=== PATIENT | male | born 1935 ===

== ENCOUNTER → 2016-09-10 | Day surgery (SDC) | payer OTHER ==
[~2016-09-10] VITALS: Ht 175.3 cm; Wt 77.1 kg
[2016-09-10] VITALS (11 sets, daily range): BP systolic 106–120; BP diastolic 63–78
[~2016-09-10] MED LIST: ASPIR-LOW81 MG ORAL; ATORVASTATIN CA40 MG ORAL; BSS 15ml BTL ONE; BSS 500ml btl ONE; D3 PO; Dexamethasone 4mg/ml vial ONE; EPINEPHrine 1mg/1ml Amp ONE; Gatifloxacin Opth Solution 0.5% ONE; HYDROCHLOROTHIA25 MG ORAL; LR 1000ml ONE; Lidocaine 1% MPF 10mg/ml 5ml ONE; METFORMIN HCL500 M4 ORAL; Midazolam 2mg/2ml Inj ONE; NS Irrig 1000ml ONE; Povidone-Iodine 5% opth solution ONE; Sodium Hyaluronate 14 mg/ml 0.85ml ONE; Sterile Water Irrig 1000ml IRRIG ONE; [UNRECOGNIZED DRUG - OTHER] PO; fentaNYL 100 mcg/2 mL IV ONE
[2016-09-10] MEDS: Phenylephrine 2.5% Op Soln LEFT EYE SCH ×3 (07:29→07:53)
[2016-09-10] MEDS: Tobradex Opth Susp 2.5ml LEFT EYE SCH ×3 (07:30→07:55)
[2016-09-10] MEDS: Tropicamide 1% Opth Soln LEFT EYE SCH ×3 (07:30→07:55)
[2016-09-10] MEDS: Diclofenac Sod 0.1% Op Soln LEFT EYE SCH ×3 (07:30→07:55)
[2016-09-10] MEDS: Gatifloxacin Opth Solution 0.5% LEFT EYE SCH ×3 (07:31→07:55)
[2016-09-10] MEDS: Akten 3.5% 1ml Btl LEFT EYE SCH ×3 (07:31→07:56)
--- NOTE | 2016-09-10 07:37 | Pre-Procedure Note/Attestation ---
Pre-Procedure Note/Attestation Complete Prior to Procedure Planned Procedure: left Procedure Narrative: cataract extraction with implant left eye Indications for Procedure Pre-Operative Diagnosis: cataract left eye Attestation I attest that I discussed the nature of the procedure; its benefits; risks and complications; and alternatives (and the risks and benefits of such alternatives ), prior to the procedure, with the patient (or the patient's legal business services sales representative). I attest that, if there was a reasonable possibility of needing a blood transfusion, the patient (or the patient's legal business services sales representative) was given the [facility] standardized written summary, pursuant to the [place] Blood Safety Act ([place] Health and Safety Code # 1645, as amended). I attest that I re-evaluated the patient just prior to the surgery and that there has been no change in the patient's H&P, except as documented below: HEENA HARRIS Sep 10, 2016 07:37
--- NOTE | 2016-09-10 09:36 | Brief Operative Note ---
Immediate Post Operative Note Operative Note Pre-op Diagnosis: cataract left eye Procedure: phacoemulsification of cataract with implant left eye Post-op Diagnosis: same as pre-op Surgeon: heena toth Wine Manager: none Anesthesiologist: hemant mishra Anesthesia: MAC Specimen: none Complications: none Condition: stable Estimated Blood Loss: none Drains: none Implant(s) used?: Yes HEENA TOTH Sep 10, 2016 09:36
--- NOTE | 2016-09-10 09:52 | Immediate Post-Op Evaluation ---
Immediate Post-Op Evalulation Immediate Post-Op Evalulation Procedure: cataract extraction left eye Date of Evaluation: Sep 10, 2016 Time of Evaluation: 09:28 IV Fluids: 200 Blood Pressure Systolic: 113 Blood Pressure Diastolic: 64 Pulse Rate: 67 Respiratory Rate: 14 O2 Sat by Pulse Oximetry: 99 Temperature (Fahrenheit): 97.0 Nausea: No Vomiting: No Complications none Patient Status: awake, reacts, patent Hydration Status: adequate Drug: none JACERIRONIIONGEOVANNI CRNA Sep 10, 2016 09:52
--- NOTE | 2016-09-10 09:55 | Anethesia Preoperative Eval ---
Anesthesia Pre-op PMH/ROS General Date of Evaluation: Sep 10, 2016 Time of Evaluation: 08:55 Anesthesiologist: danica ASA Score: ASA 2 Mallampati Score Class I : Soft palate, uvula, fauces, pillars visible Class II: Soft palate, uvula, fauces visible Class III: Soft palate, base of uvula visible Class IV: Only hard plate visible Mallampati Classification: Class II Surgeon: navneet Diagnosis: cataract Surgical Procedure: cataract extraction left eye Anesthesia History: none Family History: no anesthesia problems Allergies: Coded Allergies: No Known Allergies (Unverified , 09/09/16) Medications: see eMAR Past Medical History Cardiovascular: Reports: HTN Pulmonary: Denies: COPD, ELIZA, asthma, other Gastrointestinal/Genitourinary: Denies: CRI, ESRD, GERD, other Neurologic/Psychiatric: Denies: CVA, TIA, dementia, depression/anxiety, other Endocrine: Reports: DM HEENT: Reports: cataract (L) Hematology/Immune: Denies: DVT, anemia, bleeding disorder, other Musculoskeletal/Integumentary: Denies: DDD, DJD, OA, RA, edema, other PSxH Narrative: cataract right eye Anesthesia Pre-op Phys. Exam Physician Exam Last Vital Signs Date Time Temp Pulse Resp B/P Pulse Ox O2 Delivery O2 Flow Rate FiO2 09/10/16 09:46 63 19 112/70 99 Room Air 09/10/16 09:26 97.0 Constitutional: NAD Neurologic: CN 2-12 intact Cardiovascular: RRR Respiratory: CTA Gastrointestinal: S/NT/ND Airway Exam Mallampati Classification 2 Mallampati Score: Class II MO: full ROM: full Dentures: no lower, no upper Anesthesia Pre-op A/P Studies Pre-op Studies: EKG - sr Risk Assessment & Plan Plan: mac Status Change Before Surgery: No Pre-Antibiotics Drug: none GEOVANNI NARAYAN CRNA Sep 10, 2016 09:55
--- NOTE | 2016-09-10 11:02 | 48 Hour Post Anesthesia Eval ---
Post Anesthesia Evaluation Procedure: cataract extraction left eye Date of Evaluation: Sep 10, 2016 Time of Evaluation: 11:02 Blood Pressure Systolic: 113 0: 64 Pulse Rate: 63 O2 Sat by Pulse Oximetry: 99 Airway: patent Nausea: No Vomiting: No Hydration Status: adequate Mental Status/LOC: patient returned to baseline Post-Anesthesia Complications: none Follow-up care needed: N/A GEOVANNI NARAYAN CRNA Sep 10, 2016 11:02
--- NOTE | 2016-09-10 12:47 | Operative Note - Dictated ---
DATE OF OPERATION: 09/10/2015 PREOPERATIVE DIAGNOSIS: Cataract, left eye. POSTOPERATIVE DIAGNOSIS: Cataract, left eye. PROCEDURE: Phacoemulsification cataract left eye with placement of posterior intraocular lens. SURGEON: Guillermo Sarah M.D. LEAD RAMP SERVICE MAN: None. ANESTHESIA: MAC/topical. ANESTHESIOLOGIST: Mariluz Mccall C.R.N.A. INDICATION FOR PROCEDURE: Poor vision, left eye. DESCRIPTION OF FINDINGS: Nuclear sclerotic and cortical cataract, left eye. DESCRIPTION OF PROCEDURE: The patient received a topical anesthetic block consisting of 3.5% Akten eye drops. The eye was then prepped and draped in usual manner. A lid speculum was placed. An operating Zeiss microscope was positioned. A temporal corneal groove was made with the alf blade. A SuperSharp blade made a stab incision at the 6 o'clock position. A 0.1 mL of 1% nonpreserved intracameral lidocaine was injected. Healon was instilled into the anterior chamber and a 2.5/2.8 mm trapezoidal alf blade was used to complete the temporal corneal wound. A cystotome was used to create an anterior capsular flap. Utrata forceps were used to complete the capsulorrhexis. BSS on a cannula was used to hydrodissect the nucleus. The lens nucleus phacoemulsified in a phaco-fracture technique. Remaining cortical material was removed with the I/A and the posterior capsule polished with the I/A on Cap vac. Healon was reinstilled into the capsular bag, and anterior chamber, and an Seth foldable one-piece posterior chamber intraocular lens, model ZCB00, power 19.5 diopter, serial #[id number] was placed into the injector. The lens was put into the capsular bag. The I/A tip was used to remove the Healon and position the lens. The wound edge was hydrated with BSS and a blunt-tipped cannula. The wound was checked and found to be watertight. The lid speculum was removed. A drop of TobraDex and Zymaxid was placed. A clear plastic shield was taped over the eye. The patient tolerated the procedure well and left the operating room in good condition. Guillermo Sarah M.D. ([facility] [place] DR: Harlan JOB#: [id number] CC: Dr. Mason Childers [facility]
== END | disposition home or self-care (01) ==
LOC: SUR 06:49
DX: H25.12 Age-related nuclear cataract, left eye (principal); H25.012 Cortical age-related cataract, left eye; E11.42 Type 2 diabetes mellitus with diabetic polyneuropathy; Z79.84 Long term (current) use of oral hypoglycemic drugs; E11.21 Type 2 diabetes mellitus with diabetic nephropathy; R80.1 Persistent proteinuria, unspecified; E11.51 Type 2 diabetes mellitus with diabetic peripheral angiopathy without gangrene; I70.0 Atherosclerosis of aorta; E78.2 Mixed hyperlipidemia; I10 Essential (primary) hypertension; G45.8 Other transient cerebral ischemic attacks and related syndromes; K57.30 Diverticulosis of large intestine without perforation or abscess without bleeding; F17.210 Nicotine dependence, cigarettes, uncomplicated; Z79.82 Long term (current) use of aspirin; Z79.899 Other long term (current) drug therapy
CPT/HCPCS: 66984; 82962; J0171; J1100; J2250; J3010; J7120; V2632; 94003; 94150

== ENCOUNTER 2017-02-25 14:00 | Outpatient (RCR) | payer OTHER ==
[~2017-02-25 14:00] MED LIST changes: -BSS 15ml BTL ONE; -BSS 500ml btl ONE; -Dexamethasone 4mg/ml vial ONE; -EPINEPHrine 1mg/1ml Amp ONE; -Gatifloxacin Opth Solution 0.5% ONE; -LR 1000ml ONE; -Lidocaine 1% MPF 10mg/ml 5ml ONE; -Midazolam 2mg/2ml Inj ONE; -NS Irrig 1000ml ONE; -Povidone-Iodine 5% opth solution ONE; -Sodium Hyaluronate 14 mg/ml 0.85ml ONE; -Sterile Water Irrig 1000ml IRRIG ONE; -fentaNYL 100 mcg/2 mL IV ONE
== END 2017-03-02 | disposition home or self-care (01) ==
LOC: PTY 14:00
PROVIDERS: ATTEND Internal Medicine
DX: M54.16 Radiculopathy, lumbar region (principal); M75.02 Adhesive capsulitis of left shoulder

== ENCOUNTER 2017-03-31 13:22 | Outpatient (RCR) | payer OTHER | END 2017-04-02 | disposition home or self-care (01) | LOC: PTY 13:22 | PROVIDERS: ATTEND Internal Medicine | DX: M54.16 Radiculopathy, lumbar region (principal); M75.02 Adhesive capsulitis of left shoulder | CPT/HCPCS: 97035; 97110; 97112; 97140; G0283 ==

== ENCOUNTER 2017-04-29 14:55 | Outpatient (RCR) | payer OTHER | END 2017-05-02 | disposition home or self-care (01) | LOC: PTY 14:55 | PROVIDERS: ATTEND Internal Medicine | DX: M54.16 Radiculopathy, lumbar region (principal); M75.02 Adhesive capsulitis of left shoulder; M17.9 Osteoarthritis of knee, unspecified | CPT/HCPCS: 97035; 97110; 97112; 97140; G0283 ==

== ENCOUNTER 2017-05-11 13:45 | Outpatient (RCR) | payer OTHER | END 2017-06-02 | disposition home or self-care (01) | LOC: PTY 13:45 | PROVIDERS: ATTEND Internal Medicine | DX: M54.16 Radiculopathy, lumbar region (principal); M75.02 Adhesive capsulitis of left shoulder | CPT/HCPCS: 97110; 97140; G0283 ==